=== PATIENT | female | born 1940 | race Hispanic/Latino ===

== ENCOUNTER → 2023-08-28 | Day surgery (SDC) | payer MEDICARE ==
[2023-08-27 09:39] LABS: BASOPHILS # (AUTO) 0.1 (0.0-0.1); BASOPHILS % 0.7 % (0.0-1.0); EOSINOPHILS # (AUTO) 0.2 (0.0-0.4); EOSINOPHILS % 2.7 % (0.0-6.0); HEMATOCRIT 38.9 % (34.2-44.1); HEMOGLOBIN 13.1 g/dL (12.0-16.0); LYMPHOCYTES # (AUTO) 1.5 (1.0-3.2); LYMPHOCYTES % 21.8 % (18.0-39.1); MEAN CORPUSCULAR HEMOGLOBIN 30.8 pg (28-32); MEAN CORPUSCULAR HGB CONC 33.7 g/dL (31-35); MEAN CORPUSCULAR VOLUME 91.3 fL (81-99); MONOCYTES # (AUTO) 0.5 (0.2-0.8); MONOCYTES % 7.3 % (4.4-11.3); NEUTROPHILS # (AUTO) 4.5 (2.1-6.9); NEUTROPHILS % 67.2 % (38.7-80.0); PLATELET COUNT 213 x10e3/uL (140-360); RED BLOOD COUNT 4.26 x10e6/uL (3.6-5.1); WHITE BLOOD COUNT 6.75 x10e3/uL (4.8-10.8)
[~2023-08-28] MED LIST: ATORVASTATIN CA20 MG PO; CITRACAL PO; FERROUS GLUCON324 M2 PO; LACTATED RINGER'S 1,000 ML ONE; LIDOCAINE HCL 2% LOCAL INJ 5 ML SDV VIAL INJ ONE; METOPROLOL SUCC25 MG PO; PROPOFOL IV EMULSION 10 MG/ML 20 ML VIAL ONE; SIMETHICONE 40 MG/0.6 ML BTL ONE; VITAMIN B-121000 MCG PO
[2023-08-28 09:41] VITALS: TEMP 98.9
[2023-08-28 10:25] VITALS: BP 140/92; PULSE 60; RESP 16; O2SAT 98
== END | disposition home or self-care (01) ==
LOC: OR 07:59
PROVIDERS: ATTEND Internal Medicine Gastroenterology
DX: D12.2 Benign neoplasm of ascending colon (principal); K63.5 Polyp of colon; K57.30 Diverticulosis of large intestine without perforation or abscess without bleeding; K64.8 Other hemorrhoids; K92.1 Melena; K59.00 Constipation, unspecified; K31.A22 Gastric intestinal metaplasia with high grade dysplasia; K21.9 Gastro-esophageal reflux disease without esophagitis; K25.3 Acute gastric ulcer without hemorrhage or perforation; K44.9 Diaphragmatic hernia without obstruction or gangrene; I10 Essential (primary) hypertension; E78.5 Hyperlipidemia, unspecified; D51.9 Vitamin B12 deficiency anemia, unspecified; R35.0 Frequency of micturition; Z01.812 Encounter for preprocedural laboratory examination; Z79.899 Other long term (current) drug therapy
CPT/HCPCS: 36415; 45384; 85025; 88305; J2001; J2704; J7121; 45378; 45385